=== PATIENT | male | born 1965 | race Caucasian/White ===

== ENCOUNTER 2017-09-17 21:40 | Emergency (ER) | payer OTHER ==
[~2017-09-17] VITALS: Ht 182.9 cm; Wt 129.3 kg
[2017-09-17] MEDS ORDERED: AUGMENTIN 875-1 EACH PO (22:19)
== END 2017-09-17 22:26 | disposition home or self-care (01) ==
LOC: ED 21:40
PROC: 0HQEXZZ Repair Left Lower Arm Skin, External Approach (ICD-10-PCS; principal; 2017-09-17)
DX: S51.852A Open bite of left forearm, initial encounter (principal); Z88.1 Allergy status to other antibiotic agents; W54.0XXA Bitten by dog, initial encounter; Y92.009 Unspecified place in unspecified non-institutional (private) residence as the place of occurrence of the external cause
CPT/HCPCS: 12002; 99283

== ENCOUNTER 2019-07-06 07:45 | Day surgery (SDC) | payer OTHER ==
[~2019-07-06] VITALS: Ht 182.9 cm; Wt 143.3 kg
[~2019-07-06 07:45] MED LIST: ALEVE220 M1 PO; AUGMENTIN 875-1 EACH PO; FLOMAX0.4 MG PO; GINKGO60 MG PO; MELATONIN10 MG PO; ZYRTEC10 M3 PO
--- NOTE | 2019-07-06 09:13 | NUR ---
[facility] ARRIVED IN PACU SLEEPY WITH NO C/O'S. ABD SOFT. 0910 SITTING UP IN BED SIPPING ON WATER.
--- NOTE | 2019-07-06 11:01 | OR ---
[facility] [address], [place] [address] Signed DATE OF OPERATION: 07/06/2019 SURGEON: Lizy Rosario MD PREOPERATIVE DIAGNOSIS: Screening. POSTOPERATIVE DIAGNOSIS: 4 mm polyp at 20 cm (rectosigmoid junction). PROCEDURE: Colonoscopy with hot biopsy. ESTIMATED BLOOD LOSS: None. INDICATIONS: Sara is a 53-year-old gentleman, asked to see me for his initial screening colonoscopy. He has no lower GI complaints. There is no family history of colon cancer or polyps. In the office, I gave Sara a pamphlet on colonoscopy. We looked at that together along with the risks including, but not limited to gas, bloating, crampy abdominal pain, bleeding, perforation requiring surgery, and missed diagnosis. We also discussed the need for IV conscious sedation. He had expressed understanding and wished to proceed. PROCEDURE NOTE: Sara was taken into our endoscopy suite and placed in the left lateral decubitus position. He was given 3 mg of Versed and 100 mcg fentanyl to cover the case. A digital rectal exam was performed. He does have [id number] enlargement and induration to the prostate. No nodules. The adult colonoscope was introduced and advanced all around into the cecum under direct visualization of camera without difficulty. His prep was good. The scope was slowly withdrawn. We could easily see the appendiceal orifice and the ileocecal valve. Pictures were taken throughout for photodocumentation. We found just a single small polyp at the rectosigmoid junction. It was easily removed with hot biopsy forceps. The rectum was unremarkable. Upon retroflexion of the scope, there was no additional pathology noted above the anal canal. After this, the gas was suctioned out and the colonoscope removed. Sara tolerated procedure quite well. RECOMMENDATIONS: I will see Sara back in my office in 7 to 14 days to review his results. No aspirin or Electronically Signed By: LIZY ROSARIO MD 07/06/19 1101 PATIENT NAME: SARA AWAD OPERATIVE REPORT DATE OF : 61 REPORT #: [id number] PHYSICIAN: LIZY ROSARIO MD PCP: SHANIQUE CARVALHO MD REPORT IS CONFIDENTIAL AND NOT TO BE RELEASED WITHOUT AUTHORIZATION [address] [address] Signed NSAIDs for one week. Lizy Rosario MD ALB/MODL /[id number] cc: MD Lizy Elkins MD Copies: LIZY ROSARIO MD ~ Electronically Signed By: LIZY ROSARIO MD 07/06/19 1101 PATIENT NAME: SARA AWAD OPERATIVE REPORT DATE OF : 61 REPORT #: [id number] PHYSICIAN: LIZY ROSARIO MD PCP: SHANIQUE CARVALHO MD REPORT IS CONFIDENTIAL AND NOT TO BE RELEASED WITHOUT AUTHORIZATION
--- NOTE | 2019-07-07 13:58 | PATH ---
[facility] [address] [id number] Signed SPECIMEN(S): A COLON POLYP AT 20 CM SPECIMEN SOURCE: A. COLON POLYP AT 20 CM CLINICAL HISTORY: Screening/rectal polyp. MICROSCOPIC DESCRIPTION: Histologic sections of all submitted blocks are examined by light microscopy. These findings, together with the gross examination, support the pathologic diagnosis. FINAL PATHOLOGIC DIAGNOSIS: Mucosa, colon at 20 cm, biopsy: - Hyperplastic polyp. LJA:cml:C2NR GROSS DESCRIPTION: The specimen, labeled "KM, colon polyp at 20 cm," is received in formalin and consists of one pink-castañeda soft tissue fragment that measures 0.3 cm in greatest dimension. The specimen is entirely submitted in cassette (A1). FB (under the direct supervision of a pathologist) The Gross Description was prepared using a voice recognition system. The report was reviewed for accuracy; however, sound-alike word errors, addition and/or deletions may occur. If there is any question about this report, please contact Client Services. PERFORMING LABORATORY: The technical component was performed by [facility], [address] [place] [id number] (Compensation Coordinator: Idalia Matthews MD; CLIA# [id number]). [facility] [address] [address] (Compensation Coordinator: Vu Segura MD; CLIA# [id number]). Diagnostician: Vu Segura MD Pathologist Electronically Signed 07/07/2019 PATIENT NAME: SARA AWAD PATHOLOGY DATE OF : 61 REPORT #: [id number] PHYSICIAN: MARCO ANTONIO PATHOLOGY PCP: SHANIQUE CARVALHO MD REPORT IS CONFIDENTIAL AND NOT TO BE RELEASED WITHOUT AUTHORIZATION [address] [address] Signed Copies: ~ PATIENT NAME: SARA AWAD PATHOLOGY DATE OF : 61 REPORT #: [id number] PHYSICIAN: MARCO ANTONIO PATHOLOGY PCP: SHANIQUE CARVALHO MD REPORT IS CONFIDENTIAL AND NOT TO BE RELEASED WITHOUT AUTHORIZATION
== END 2019-07-06 09:35 | disposition home or self-care (01) ==
LOC: OPS 07:45 → DS 07:49 → OPS 09:00 → DS 09:00 → OPS 09:35
PROVIDERS: Colon & Rectal Surgery
PROC: 0DBN8ZZ Excision of Sigmoid Colon, Via Natural or Artificial Opening Endoscopic (ICD-10-PCS; principal; 2019-07-06 09:00)
DX: Z12.11 Encounter for screening for malignant neoplasm of colon (principal); K63.5 Polyp of colon; E66.01 Morbid (severe) obesity due to excess calories; Z79.899 Other long term (current) drug therapy; Z88.1 Allergy status to other antibiotic agents; Z79.1 Long term (current) use of non-steroidal anti-inflammatories (NSAID); Z68.41 Body mass index [BMI] 40.0-44.9, adult
CPT/HCPCS: 99153; G0500; J2250; J3010